=== PATIENT | male | born 1975 | race Caucasian/White ===

== ENCOUNTER 2023-03-24 15:00 | Day surgery (SDC) | payer OTHER, SELFPAY ==
[2023-03-24] VITALS (15 sets, daily range): BP systolic 117–139; BP diastolic 83–99; PULSE 70–90; RESP 14–16; TEMP 36.4–37; O2SAT 93–97; BMI 24.3
--- NOTE | 2023-03-24 16:14 | ED.GENADULT ---
HPI - General Adult General Date Seen: 03/24/23 Chief complaint: Abdominal Pain Stated complaint: Lower abdominal pain Time Seen by Provider: 03/24/23 16:12 History of Present Illness HPI narrative: 47-year-old male she presents to the ER today for evaluation of right lower quadrant abdominal pain. He says he was healthy and well yesterday and slept well last night. He got up at about 6:00 a.m. this morning to go to work any notice he was having abdominal pain. He was more on the right and in the right lower quadrant than anywhere else but it was also in the midline. He tried to go to work and was working for a couple of hours. By about 9:00 a.m. he was having too much pain and had to go home. He noticed that he had 3 bowel movements this morning that were brown, not bloody or black. The stools were not really diarrhea. He had a couple of episodes where he got nauseous and almost vomited, but did not throw up. His notes that he had the blankets pulled up and he seemed to have some chills this afternoon but the patient does not really recall having had any fever. He did not measure his temperature. He is not having any flank pain. No pain radiating to his groin. No known lumps or hernias. No known injuries. The pain was much more significant when his pushed on his abdomen at home and was more severe when he went over bumps in the truck on the way to the hospital. Now that he is here he says the pain is improved. He does not really know why but it is down to a 3-4/10. History are nurse had him jump up and down it did not seem to notice any peritoneal findings. Related Data Previous Rx's Medication Instructions Recorded hydrocodone 5 mg-acetaminophen 325 1 tab PO Q6H PRN pain #25 tabs 03/24/23 mg tablet Allergies Allergy/AdvReac Type Severity Reaction Status Date / Time No Known Drug Allergies Allergy Verified 03/24/23 15:10 PFSH PFS Surgical History (Updated 03/24/23 @ 20:21 by Chapin Garcia MD) H/O wrist surgery ?Z98.890 - Other specified postprocedural states (ICD-10) Social History (Updated 03/24/23 @ 20:22 by Chapin Garcia MD) Narrative: Patient admits to smoking and drinking alcohol. He works at a [employer]. Smoking Status: Current every day smoker What tobacco products do you use: cigarettes Do you use any of these nicotine containing products: None Second hand tobacco smoke exposure: No How often do you have a drink containing alcohol: 4 or more times a week How many standard drinks containing alcohol do you have on a typical day: 5 or 6 How often do you have six or more drinks on one occasion: Never AUDIT-C Alcohol total score: 6 Non-prescribed substance use: denies use Exam Narrative: Exam Narrative: Constitutional: Appears well-developed and well-nourished. Alert. Conversant. Non toxic. HENT: Head: Atraumatic. Nose: Nose normal. Mouth/Throat: Oral mucosa is clear and moist. no trismus. Eyes: Conjunctivae normal. EOM normal. Pupils equal, round, and reactive to light. No scleral icterus. Neck: Normal range of motion. Neck supple. No tracheal deviation present. Cardiovascular: Normal rate, regular rhythm. No gallop. No friction rub. No murmur heard. Symmetric radial artery pulses Pulmonary/Chest: Effort normal. No stridor. No respiratory distress. No wheezes. No rales. No rhonchi . No tenderness. Abdominal: Soft. Bowel sounds normal. No distension. No mass. RLQ and LLQ> suprapubic tenderness. Also mild periumbilical tenderness. No right upper quadrant, epigastric, left upper quadrant tenderness. No CVA tenderness. No Rovsing sign. No definite peritoneal findings. No rebound. No guarding. Negative heel tapping test. No pain exacerbated by pelvic rocking. No rash. No mass. Musculoskeletal: RUE: Normal range of motion. No tenderness. No deformity LUE: Normal range of motion. No tenderness. No deformity RLE: Normal range of motion. No edema. No tenderness. No deformity LLE: Normal range of motion. No edema. No tenderness. No deformity Neurological: Alert and oriented to person, place, and time. Normal strength. CN II-VII intact. No sensory deficit. GCS eye subscore is 4. GCS verbal subscore is 5. GCS motor subscore is 6. Normal coordination Skin: Skin is warm and dry. No rash noted. No pallor. Normal capillary refill. Psychiatric: Normal mood. Normal affect. Const: Vital Signs, click to edit/add: Vital Signs - 24 hr 03/24/23 15:06 Temperature 98.3 F Pulse Rate [Pulse Oximeter] 90 Respiratory Rate 16 Blood Pressure [Ri ght Upper Arm] 138/88 Pulse Oximetry 97 Oxygen Delivery Me thod Room Air Course Course ED Course: Recheck-labs back. White count 15.8. Patient said his pain is improved down to a 2 or 3/10 after Toradol. Repeat exam still most tender in the right lower quadrant but still no definitive peritoneal findings. No guarding. No rebound. No Rovsing sign. No pain with pelvic rocking. Discussed with the patient and his that I am concerned about the white count and overall story is still concerning for, but not definitive to indicate, appendicitis. We discussed options including watchful waiting and recheck in 12 hours, transfer to a different hospital where they have active Radiology to read abdominal CT, or CT imaging here with a read to be performed by myself and the surgeon, Dr. Rendon. We discussed that Dr. Cortez from IR not radiologist and there is a chance we could miss an important finding trying to read the CT are self. We have to weigh the potential risk of missing an important diagnosis verses the harm/inconvenience of having to be transferred for imaging or the risk of worsening illness with watchful waiting. Ultimately the patient and his family want to go forward with imaging here. Therefore CT is obtained. Reevaluation(s) Reevaluation #1: -I reviewed the patient's CT images. Suspicious for acute appendicitis. Liver and gallbladder and spleen looked normal to me. Kidneys look normal. No obvious inflammatory change around the colon or sigmoid. I do not see any free air. Discussed with surgery, Dr. Rendon. She reviewed the CT images. Reevaluation #2: Recheck-Dr. Rendon reviewed the images. She agrees that this indicates acute appendicitis. She will take the patient to the OR. He should remain NPO. No antibiotics here in the ER. Antibiotics will be hung when he gets to the OR. Vital Signs Vital signs: Initial Vital Signs Temperature 98.3 F 03/24/23 15:06 Temperature Source Temporal Artery Scan 03/24/23 15:06 Pulse Rate 90 03/24/23 15:06 Respiratory Rate 16 03/24/23 15:06 Blood Pressure 138/88 03/24/23 15:06 Blood Pressure Mean 104 03/24/23 15:06 Blood Pressure Position Sitting 03/24/23 15:06 Pulse Oximetry 97 03/24/23 15:06 Oxygen Delivery Method Room Air 03/24/23 15:06 Vital Signs Temperature 98.3 F 03/24/23 15:06 Pulse Rate 90 03/24/23 15:06 Respiratory Rate 16 03/24/23 15:06 Blood Pressure 138/88 03/24/23 15:06 Pulse Oximetry 97 03/24/23 15:06 Oxygen Delivery Method Room Air 03/24/23 15:06 Temperature 97.8 F 03/25/23 00:30 Pulse Rate 94 03/25/23 00:30 Respiratory Rate 16 03/25/23 00:30 Blood Pressure 125/90 H 03/25/23 00:30 Pulse Oximetry 95 03/25/23 00:30 Oxygen Delivery Method Room Air 03/25/23 00:30 Medications Administered Medications: Discontinued Medications Generic Name Dose Route Start Last Admin Trade Name Freq PRN Reason Stop Dose Admin Bupivacaine HCl 30 ml 03/24/23 21:19 03/24/23 21:10 Bupivacaine 0.25% 30 Ml INJECTION 03/24/23 21:20 10 ml ONCE ONE Administration Cefazolin Sodium 2 gm 03/24/23 20:37 03/24/23 20:29 Cefazolin 2 Gm Inj IVP 03/24/23 20:38 2 gm ONCE ONE Administration Sodium Chloride 1,000 mls @ 1,000 mls/hr 03/24/23 16:45 03/24/23 18:15 0.9 % Sodium Chloride 1000 Ml IV 03/24/23 17:44 Infused .Q1H URBAN Infusion Lactated Ringer's 1,000 mls @ 100 mls/hr 03/24/23 20:25 03/24/23 22:01 Lactated Ringers 1000 Ml IV 30 mls/hr .Q10H URBAN Infusion Ketorolac Tromethamine 15 mg 03/24/23 16:38 03/24/23 17:13 Ketorolac 15 Mg/Ml Inj IVP 03/24/23 16:39 15 mg ONCE ONE Administration Lidocaine/Epinephrine 20 ml 03/24/23 21:19 03/24/23 21:10 Lidocaine 1%-Epi 1:100,000 20 Ml INFILTRATI 03/24/23 21:20 10 ml ONCE ONE Administration Ondansetron HCl 4 mg 03/24/23 16:38 03/24/23 17:14 Ondansetron 2 Mg/Ml Inj IVP 03/24/23 16:39 4 mg ONCE ONE Administration Medical Decision Making MDM Narrative Medical decision making narrative: The patient presented with abdominal pain maximal in the right lower quadrant abdominal pain and the Workup, including CT scan, confirms appendicitis. At this point the CT scan has been read by myself and by the surgeon. We do not have active radiology here in [facility]. Patient and his family understand that if there is any further finding on the CT, he will be updated after the radiologist does a formal interpretation, likely tomorrow. There is no evidence of rupture or abscess at this time. Pain has been controlled with interventions in the Emergency Department. Parenteral antibiotics will be administered in the OR, after discussion with surgeon. The case was discussed with the collection systems technician surgeon and the patient will be going to the operating room. Patient is an otherwise healthy 47-year-old male with no underlying cardiovascular disease. No recent infection symptoms or symptoms of COVID. Lab Data Labs: Lab Results 03/24/23 03/24/23 03/24/23 Range/Units 16:00 17:12 17:12 WBC 15.82 H (4.50-11.00) K/uL RBC 5.25 (4.30-5.90) m/uL Hgb 16.3 (13.5-17.5) gm/dL Hct 48.5 (37.0-53.0) % MCV 92 (80-100) fL MCH 31 (26-34) pg MCHC 34 (32-36) gm/dL RDW Coeff of Yony 13.1 (11.5-15.5) % Plt Count 195 (140-440) K/uL Neut % (Auto) 81.4 H (42.0-72.0) % Lymph % (Auto) 10.6 L (20-44) % [place] % (Auto) 6.9 (0.0-11.0) % Eos % (Auto) 0.8 (0.0-7.0) % Baso % (Auto) 0.1 (0.0-3.0) % Neut # (Auto) 12.90 H (1.7-7.0) K/uL Lymph # (Auto) 1.70 (0.90-2.90) K/uL [place] # (Auto) 1.10 H (0.00-0.90) K/UL Eos # (Auto) 0.10 (0.00-0.50) K/uL Baso # (Auto) 0.00 (0.00-0.30) K/uL Abs Immat Gran (auto) 0.00 (0.00-0.30) K/uL Imm/Tot Granulo (auto) 0.2 % Sodium 137 (135-149) mmol/L Potassium 3.6 (3.6-5.1) mmol/L Chloride 102 (96-114) mmol/L Carbon Dioxide 22 (20-32) mmol/L Anion Gap 13 (7-15) mEq/L BUN 12 (5-24) mg/dL Creatinine 0.9 (0.5-1.5) mg/dL Estimated Creat Clear 123.23 Estimated GFR 105 ml/min Glucose 103 (60-115) mg/dL Calcium 9.3 (8.4-10.6) mg/dL Total Bilirubin 0.7 (0.1-1.5) mg/dL AST 28 (12-35) U/L ALT 37 (4-50) U/L Alkaline Phosphatase 89 (40-150) U/L Total Protein 8.6 H (6.0-8.3) g/dL Albumin 5.1 H (3.3-5.0) g/dL Lipase 103 Cancelled (23-300) U/L Urine Color Yellow (Yellow) Urine Appearance Clear (Clear) Urine pH 5.5 (5.0-8.5) Ur Specific [place] 1.025 (1.000-1.030) Urine Protein Negative (Negative) Urine Glucose (UA) Negative (Negative) Urine Ketones 1+ A (Negative) Urine Blood Negative (Negative) Urine Nitrite Negative (Negative) Urine Bilirubin Negative (Negative) Urine Urobilinogen 0.2 (0.2-1.0) Ur Leukocyte Esterase Negative (Negative) Urine RBC 0-2 (0-2) Urine WBC 0-2 (0-5) Ur Squamous Epith Cells None (None-Few) Urine Bacteria None (None) Discharge Plan Discharge Clinical Impression: Acute appendicitis Patient Disposition: XFER to OR
[2023-03-24] MEDS: 0.9 % SODIUM CHLORIDE 1000 ml 1,000 ML IV (17:12)
[2023-03-24] MEDS: KETOROLAC 15 MG/ML inj IVP (17:13)
[2023-03-24] MEDS: ONDANSETRON 2 MG/ML inj 4 MG IVP (17:14)
[2023-03-24 17:22] LABS: Basophils Percent Auto 0.1 % (0.0-3.0); Eosinophils Percent Auto 0.8 % (0.0-7.0); Hematocrit 48.5 % (37.0-53.0); Hemoglobin* 16.3 gm/dL (13.5-17.5); Immature Granulocytes Pct Auto 0.2 %; Lymphocytes Percent Auto 10.6 % (20-44); Mean Corpuscular HGB Conc 34 gm/dL (32-36); Mean Corpuscular Hemoglobin 31 pg (26-34); Mean Corpuscular Volume 92 fL (80-100); Monocytes Percent Auto 6.9 % (0.0-11.0); Neutrophils Percent Auto 81.4 % (42.0-72.0); Platelet Count* 195 K/uL (140-440); RDW Coefficient of Variation % 13.1 % (11.5-15.5); Red Blood Count 5.25 m/uL (4.30-5.90); White Blood Count* 15.82 K/uL (4.50-11.00)
[2023-03-24 17:24] LABS: Slide Review Reflex No
[2023-03-24 17:37] LABS: Chloride* 102 mmol/L (96-114)
[2023-03-24 17:38] LABS: Albumin* 5.1 g/dL (3.3-5.0); Potassium* 3.6 mmol/L (3.6-5.1); Sodium* 137 mmol/L (135-149)
[2023-03-24 17:40] LABS: Creatinine* 0.9 mg/dL (0.5-1.5); Est. Creatinine Clearance* 123.23; Estimated Glomerular Filt Rate 105 ml/min
[2023-03-24 17:41] LABS: Alanine Aminotransferase* 37 U/L (4-50); Alkaline Phosphatase* 89 U/L (40-150); Anion Gap 13 mEq/L (7-15); Aspartate Amino Transferase* 28 U/L (12-35); Bilirubin Total* 0.7 mg/dL (0.1-1.5); Blood Urea Nitrogen* 12 mg/dL (5-24); Carbon Dioxide* 22 mmol/L (20-32); Glucose* 103 mg/dL (60-115); Lipase* 103 U/L (23-300); Total Protein* 8.6 g/dL (6.0-8.3)
[2023-03-24 17:42] LABS: Calcium* 9.3 mg/dL (8.4-10.6)
--- NOTE | 2023-03-24 17:52 | CT_ITS ---
Final Report Patient: KOLTON BLANTON Facility:?[facility] Patient ID:?[id number] Site Patient ID:?[id number]. Site :?[id number] Study:?CT Abdomen/Pelvis W/IV ONLY-03/24/2023 6:24:31 PM Ordering Physician:EREN Final Report: INDICATION: Abdominal pain. TECHNIQUE: Multiplanar CT examination of the abdomen and pelvis was performed after the administration of 98 mL Isovue 370 intravenous contrast. COMPARISON: None. FINDINGS: Lower chest: No focal consolidation. Normal heart size. No pleural effusions or pneumothorax. Linear bandlike opacifications of the lung bases bilaterally, likely represents subsegmental atelectasis. Liver: Unremarkable. Gallbladder: Unremarkable. Biliary: Unremarkable. Pancreas: Within normal limits. Spleen: Unremarkable. Adrenal glands: Unremarkable. Renal/ureters/bladder: Normal in size and symmetrically enhancing. No obstructive uropathy. No hydronephrosis or obstructive urinary calculi. No suspicious renal masses. The ureters appear unremarkable. The bladder is within normal limits. Pelvis: Unremarkable. Gastrointestinal: No bowel wall thickening or bowel obstruction. Dilated appendix measuring up to 10 mm, with appendiceal wall thickening and periappendiceal fat stranding. No periappendiceal fluid collections identified. Trace colonic diverticulosis without significant pericolonic fat stranding to suggest acute diverticulitis. Mild colonic stool burden. Vasculature: No aortic aneurysm. The portal vein remains patent. Mild atherosclerotic calcifications. Lymph nodes: No pathologic lymphadenopathy by size criteria. Peritoneum: Mild periappendiceal mesenteric fat stranding. No free fluid or pneumoperitoneum. No drainable fluid collections. Abdominal wall/soft tissues: Unremarkable. Bones: No acute osseous abnormalities IMPRESSION: Findings compatible with acute nonperforated appendicitis. No drainable abscess identified. Please note that all CT scans at this facility use dose modulation, iterative reconstruction, and/or weight-based dosing when appropriate to reduce radiation dose to as low as reasonably achievable. Dictated by Marty Rausch MD @ 03/25/2023 6:10:18 AM (Electronic Signature)
[2023-03-24 19:22] LABS: Appearance Urine Clear (Clear); Bilirubin Urine Negative (Negative); Blood Urine Negative (Negative); Color Urine Yellow (Yellow); Glucose Urine Negative (Negative); Ketones Urine 1+ (Negative); Leukocyte Esterase Urine Negative (Negative); Nitrite Urine Negative (Negative); Protein Urine Negative (Negative); Specific Gravity Urine 1.025 (1.000-1.030); Urobilinogen Urine 0.2 (0.2-1.0); pH Urine 5.5 (5.0-8.5)
[2023-03-24 19:36] LABS: RBC Urine 0-2 (0-2); WBC Urine 0-2 (0-5)
--- NOTE | 2023-03-24 20:20 | P.GSHP_ITS ---
History of Present Illness History of Present Illness Date Seen: 03/24/23 Chief complaint: Lower abdominal pain Narrative: Urbano De La Rosa is a 47 year old male presented to emergency room with diffuse abdominal pain that started in the morning after patient woke up. The pain was persistent and was getting worse. Patient left work after noon and continued to have pain that was described as diffuse. He described the pain as ?discomfort?, worse with moving around or walking. He had nausea but no vomiting. He had 3 bowel movements in the morning. In the emergency room he was found to have an elevated WBC of 15. An abdominal CT was obtained that showed a dilated appendix with periappendiceal inflammation. There was no evidence of an abscess. Review of Systems Narrative: General: no fevers HENT: no problems swallowing CV: no shortness of breath Resp: no cough GI: See above Skin: no new rashes Neuro: no muscle weakness PFSH PFS Surgical History (Updated 03/24/23 @ 20:21 by Chapin Garcia MD) H/O wrist surgery ?Z98.890 - Other specified postprocedural states (ICD-10) Social History (Updated 03/24/23 @ 20:22 by Chapin Garcia MD) Narrative: Patient admits to smoking and drinking alcohol. He works at a [employer]. Smoking Status: Current every day smoker What tobacco products do you use: cigarettes Do you use any of these nicotine containing products: None Second hand tobacco smoke exposure: No How often do you have a drink containing alcohol: 4 or more times a week How many standard drinks containing alcohol do you have on a typical day: 5 or 6 How often do you have six or more drinks on one occasion: Never AUDIT-C Alcohol total score: 6 Non-prescribed substance use: denies use Meds Home Medications and Allergies Home Medications Medication Instructions Recorded Confirmed Type No Known Home Medications 03/24/23 03/24/23 History Allergies Allergy/AdvReac Type Severity Reaction Status Date / Time No Known Drug Allergies Allergy Verified 03/24/23 15:10 Exam Narrative: Exam Narrative: General appearance: Alert, cooperative, and in no distress Pulmonary: Chest symmetric, lungs clear bilaterally Cardiovascular Heart: Regular rate and rhythm, S1, S2, no murmurs/rubs/gallops Gastrointestinal Abdominal: soft, not distended, tender to palpation in the right lower quadrant with rebound tenderness. Skin: Normal skin color, texture, and turgor. No rashes or lesions. Psychiatric: Alert, cooperative, normal affect. Const: Vital Signs, click to edit/add: Vital Signs - 24 hr 03/24/23 15:06 Temperature 98.3 F Pulse Rate [Pulse Oximeter] 90 Respiratory Rate 16 Blood Pressure [Ri ght Upper Arm] 138/88 Pulse Oximetry 97 Oxygen Delivery Me thod Room Air Progress Note:A&P Assessment and plan (1) Acute appendicitis: Status: Acute Plan 47-year-old male presents with acute appendicitis. I discussed with the patient and his family his laboratory and imaging findings. Patient has an elevated WBC and abdominal CT findings consistent with acute appendicitis. I recommended to proceed with laparoscopic appendectomy. The procedure was discussed in detail. The risks associated procedure including infection, bleeding, and injury to intra-abdominal organs were all discussed with the patient, and he agreed to proceed.
[2023-03-24] MEDS: CEFAZOLIN 2 GM INJ IVP (20:29)
[2023-03-24] MEDS: LACTATED RINGERS 1000 ML 1,000 ML 100 ML IV ×2 (20:33→21:36)
[2023-03-24] MEDS: BUPIVACAINE 0.25% 30 ML INJECTION (21:10)
--- NOTE | 2023-03-24 21:34 | PM.GSPRC ---
Operative Note Date of procedure: 03/24/23 Pre-op diagnosis: 1. Acute appendicitis. Post-op diagnosis: 1. Acute suppurative appendicitis. Type of Procedure: 1. Laparoscopic appendectomy. Indications: 47-year-old male presented to emergency room with abdominal pain that started today in the morning. The pain was persistent and was getting worse. Patient had nausea but no vomiting. Patient presented to emergency room. He was found to have an elevated WBC of 15. An abdominal CT was obtained that showed a dilated wall enhancing appendix with periappendiceal inflammation. On clinical exam he had tenderness to palpation in the right lower quadrant with rebound tenderness. Given patient's clinical history, his imaging findings and his physical exam, acute appendicitis was suspected, and laparoscopic appendectomy was recommended. The procedure was discussed in detail. The risks associated procedure including infection, bleeding, and injury to intra-abdominal organs were all discussed with the patient, and he agreed to proceed. Procedure Description: After discussing the risks and benefits of the procedure, the patient signed informed consent.? The operative site was marked and the patient was brought to the operating room and placed on the operating table in supine position.? Care was taken to pad the patient's pressure points.?? The patient was then intubated by anesthesia.?? The operative site was then prepped and draped in the usual sterile fashion.? A time-out was then performed. A 5-mm laparoscopy port was placed in the left upper quadrant guided by a 5-mm laparoscope placed into a translucent trochar. Passage through the layers of the abdominal wall was visualized with the laparoscope. A pneumoperitoneum was established. A 30-degree 5-mm laparoscope was advanced into the abdomen. The abdomen was briefly surveyed, and there was no evidence of diffuse peritonitis. A 12-mm port and a 5-mm port were placed in the left low quadrant and suprapubically, respectively, under direct visualization by laparoscope. Left upper quadrant entrance port was then examined intraabdominally by placing the camera through the left lower quadrant port and no intraabdominal injury was seen. The patient was placed in Trendelenburg position, allowing the abdominal contents to shift cephalad. The small bowel was moved toward the midline in the abdomen and this allowed for identification of the appendix. It appeared to be inflamed. The appendix was grasped and dissected from the peritoneum using Harmonic scalpel. Appendiceal mesentery was skeletonized with Harmonic scalpel. Appendiceal artery was clearly visualized. It was clipped with 5 mm clips on the patient's side and a single 5 mm clip on the specimen side and divided with scissors. The base of the appendix was further skeletonized with the Harmonic scalpel. Bleeding was seen from ileal fat pad near the base of the appendix. This was controlled with 5 mm clip. The base of the appendix was clearly seen. A vascular load Endo-ZULMA stapler was advanced through the 12-mm port into the abdomen and appendix was stapled off at its base. The appendix was then placed in an endoscopic retrieval bag and extracted from the abdomen through the 12-mm port. The abdomen was surveyed for hemostasis. There was small amount of bleeding seen from the appendiceal base staple line. This was controlled with a single 5 mm clip. The 12-mm port was withdrawn and the fascial defect was closed with 0-0 Vicryl stitch using Cyrus Ale needle under direct visualization. The 5-mm port was removed under direct visualization. The left upper quadrant port was used to evacuate the pneumoperitoneum and then withdrawn. The skin incisions were closed with 4-0 monocryl. Steri-Strips were applied over the incisions. All counts were correct at the end of the case. The patient tolerated this procedure well and was transferred to PACU in stable condition. Findings: Acute suppurative appendicitis with no perforation. Anesthesia: GETA Surgeon: Chapin Garcia MD Estimated blood loss (mL): 10 Specimen: Appendix Condition: stable Disposition: PACU
--- NOTE | 2023-03-24 21:37 | W.ANESCHARGE ---
Anesthesia Charges Start Date/Time Anesthesia Start Date: 03/24/23 Anesthesia Start Time: 20:22 Stop Date/Time Anesthesia Stop Date: 03/24/23 Anesthesia Stop Time: 21:33 Summary Emergency: ADVERTISING STRATEGIST
--- NOTE | 2023-03-24 22:44 | PC.NURSE ---
Patient has expressed interest in leaving tonight when meets criteria to do so. Spoke with Dr. Laurence Garcia via telephone and a telephone order was given to utilize [facility] for Hydrocodone/APAP 5/325mg tablets- take 1 tablet every 6 hours as needed for pain quantity 20. Prescription for Hydrocodone/APAP that was transmitted to [facility] in [place] was cancelled by leaving a voicemail with the pharmacy to cancel prescription. Dr. Garcia said patient may discharge when he meets criteria to safely leave. Primary nurse Marylin flores.
--- NOTE | 2023-03-24 22:53 | PC.NURSE ---
Patient arrived to unit around 2200 from surgery. Vitally stable and no pain reported. Able to tolerate ice chips and food. Incision is clean, dry and intact. Two small incisions with steri strips on them. Patient may leave to go back home tonight if tolerating post surgery. Nursing to continue to monitor.
[2023-03-25] VITALS: BP 113/85; PULSE 81; RESP 16; TEMP 36.6; O2SAT 95
[2023-03-25 00:30] VITALS: BP 125/90; PULSE 94; RESP 16; TEMP 36.6; O2SAT 95
--- NOTE | 2023-03-25 01:12 | PC.NURSE ---
Pt alert and oriented x3. Afebrile. Pt reports 2/10 pain in abdomen. Pt's 2 lap site are CDI, bowel sounds are active, lungs sounds are clear. Pt denies SOB, chest pain, and N/V. Pt is up ad lolis voiding, and tolerating a regular diet. Pt IV discontinued IV catheter intact. Verbal and written education given at bedside with significant other present, both pt and significant other verbalized understanding. Pt discharged/left unit at 0050 03/25/23 with spouse.
== END 2023-03-25 00:50 | disposition home or self-care (01) ==
LOC: ED 19:25 → OR 20:19 → MEDSURG 22:27
PROVIDERS: Emergency Provider Emergency Medicine; Visit Provider Surgery
PROC: 0DTJ4ZZ Resection of Appendix, Percutaneous Endoscopic Approach (ICD-10-PCS; CPT 44970; principal; 2023-03-24 20:15)
DX: K35.80 Unspecified acute appendicitis (principal); R10.31 Right lower quadrant pain
CPT/HCPCS: 44970; 00790; 36415; 74177; 80053; 81001; 83690; 85025; 88304; 99140; 99284; 99285; J0330; J0665; J0690; J1100; J1170; J1885; J2250; J2405; J2704; J3010; J3490; J7030; J7120; Q9967